=== PATIENT | male | born 1940 | race Caucasian/White ===

== ENCOUNTER 2016-08-05 11:56 | Emergency (ER) | payer MEDICARE, OTHER ==
[2016-08-05] MEDS ORDERED: Aspirin 325 MG TAB ONE (12:23)
[2016-08-05 12:25] LABS: #Basophils 0.1 thou/uL (0.0-0.2); #Eosinphils 0.1 thou/uL (0.0-0.7); #Lymphocytes 1.4 thou/uL (1.20-3.40); #Monocytes 0.4 thou/uL (0.11-0.59); #Neutrophils 3.6 thou/uL (1.40-6.50); %Basophils 1.3 % (0.0-1.0); %Eosinophils 2.4 % (0.0-10.0); %Lymphocytes 25.3 % (21.0-51.0); %Monocytes 6.3 % (0.0-10.0); %Neutrophils 64.7 % (42.0-75.0); Hemoglobin 12.5 g/dL (14.0-18.0); Mean Corpuscular HGB CONC 32.6 g/dL (32.0-36.0); Mean Corpuscular Hemoglobin 29.5 pg (27.0-31.0); Mean Corpuscular Volume 90.5 fl (80.0-94.0); Mean Platelet Volume 8.7 fL (7.4-10.4); Platelet Count 208 thou/uL (130-400); RBC Distribution Width 16.1 % (11.5-14.5); Red Blood Cell (RBC) Count 4.24 mill/uL (4.70-6.10); White Blood Cell (WBC) Count 5.6 thou/uL (4.8-10.8)
[2016-08-05 12:28] LABS: Prothrombin Time 13.5 SEC (12.0-14.7)
[2016-08-05 12:29] LABS: PTT 34.3 SEC (22.9-36.1)
[2016-08-05 13:07] LABS: Magnesium 2.2 mg/dL (1.6-2.6)
--- NOTE | 2016-08-05 13:24 | RAD ---
AP VIEW CHEST: HISTORY: Chest pain. DATE: 08/05/16. COMPARISON: Comparison is made to previous exam from 04/18/16. FINDINGS: AP view chest demonstrates sternotomy wires seen. The lungs are well aerated. No evidence of activ e intrathoracic disease is seen. No evidence of effusions, pneumonia, or pneumothorax is seen. IMPRESSION: Unremarkable AP view chest. POS: H
[2016-08-05 13:46] LABS: CKMB 0.9 ng/mL (0-6.6); Troponin I Less than 0.010 ng/mL (< 0.028)
[2016-08-05] MEDS ORDERED: Nitroglycerin 0.4 MG TAB 1 EACH ONE (14:18)
== END 2016-08-05 14:37 | disposition short-term general hospital (02) ==
LOC: MADERS 11:56
DX: I20.0 Unstable angina (principal); F32.9 Major depressive disorder, single episode, unspecified; K21.9 Gastro-esophageal reflux disease without esophagitis; E78.5 Hyperlipidemia, unspecified; E78.00 Pure hypercholesterolemia, unspecified; Z79.82 Long term (current) use of aspirin; Z79.01 Long term (current) use of anticoagulants; Z79.899 Other long term (current) drug therapy
CPT/HCPCS: 71010; 82550; 82553; 83735; 83880; 84484; 85025; 85610; 85730; 93005; 94760